=== PATIENT | male | born 1985 | race Two or more races ===

== ENCOUNTER 2019-02-25 07:08 | Emergency (ER) | payer SELFPAY ==
[~2019-02-25] VITALS: Ht 167.6 cm; Wt 81.6 kg
[2019-02-25 07:11] VITALS: BP 130/76
[2019-02-25 07:39] LABS: APPEARANCE,URINE Hazy (CLEAR); BILIRUBIN,URINE Negative (NEGATIVE); BLOOD, URINE Trace-intact Ery/uL (NEGATIVE); COLOR,URINE Yellow (YELLOW); KETONES,URINE Negative (NEGATIVE); LEUKOCYTE ESTERASE ,URINE Negative (NEGATIVE); NITRITE, URINE Negative (NEGATIVE); PROTEIN,URINE 30 mg/dl (NEGATIVE); UGLUCOSE Negative (NEGATIVE); UROBILINOGEN,URINE 0.2 EU/dL (0.2)
[2019-02-25 07:45] LABS: BACTERIA,URINE None seen /HPF (None Seen); SQUAMOUS EPITHELIAL CELL,UR Few /HPF (None Seen); WBC,URINE 0-3 /HPF (0-3)
== END 2019-02-25 08:07 | disposition home or self-care (01) ==
LOC: ER 07:08
DX: N39.0 Urinary tract infection, site not specified (principal); F17.200 Nicotine dependence, unspecified, uncomplicated
CPT/HCPCS: 81000-TC; 87086-TC; 87491; 87591

== ENCOUNTER 2019-03-24 08:01 | Emergency (ER) | payer MEDICAID ==
[~2019-03-24] VITALS: Ht 162.6 cm; Wt 72.6 kg
--- NOTE | 2019-03-24 08:01 | NUR ---
PT pain during urination x 3 weeks, PT IS AAOX4, NOT IN RESPIRTORY DISTRESS, V/S STABLE, KEPT RESTED AND COMFORTABLE, WILL CONTINUE TO MONITOR.
--- NOTE | 2019-03-24 08:15 | NUR ---
URINE SPECIMEN COLLECTED AND SENT TO LAB.
--- NOTE | 2019-03-24 08:17 | NUR ---
AT BEDSIDE FOR EVAL.
[2019-03-24 08:35] LABS: APPEARANCE,URINE Clear (CLEAR); BILIRUBIN,URINE Negative (NEGATIVE); BLOOD, URINE Trace-intact Ery/uL (NEGATIVE); COLOR,URINE Yellow (YELLOW); KETONES,URINE Negative (NEGATIVE); LEUKOCYTE ESTERASE ,URINE Negative (NEGATIVE); NITRITE, URINE Negative (NEGATIVE); PROTEIN,URINE Negative (NEGATIVE); UGLUCOSE Negative (NEGATIVE); UROBILINOGEN,URINE 0.2 EU/dL (0.2)
[2019-03-24 08:37] LABS: BACTERIA,URINE Rare /HPF (None Seen); RBC,URINE 0-2 /HPF (0-2); WBC,URINE 0-2 /HPF (0-3)
[2019-03-24 08:38] LABS: SQUAMOUS EPITHELIAL CELL,UR Rare /HPF (None Seen)
[2019-03-24] MEDS ORDERED: PHENAZOPYRIDINE HCL 200 MG TABLET ONE (08:58)
[2019-03-24] MEDS ORDERED: PHENAZOPYRIDINE HCL 200 MG TABLET PO ONE (09:00)
--- NOTE | 2019-03-24 09:04 | NUR ---
Patient discharged to home in stable condition. Written and verbal after care instructions given. Patient verbalizes understanding of instruction.
[2019-03-24 09:05] VITALS: BP 114/85
== END 2019-03-24 09:06 | disposition home or self-care (01) ==
LOC: ER 08:16
DX: R30.0 Dysuria (principal); F10.10 Alcohol abuse, uncomplicated; F17.200 Nicotine dependence, unspecified, uncomplicated; Y90.9 Presence of alcohol in blood, level not specified
CPT/HCPCS: 81000-TC; 87086-TC

== ENCOUNTER 2019-12-19 10:59 | Emergency (ER) | payer MEDICAID ==
[~2019-12-19] VITALS: Ht 172.7 cm; Wt 74.8 kg
--- NOTE | 2019-12-19 11:20 | NUR ---
PT TAKEN TO RADIOLOGY VIA WHEELCHAIR
[2019-12-19] MEDS ORDERED: ONDANSETRON HCL/PF 4 MG/2 ML VIAL ONE (11:24)
--- NOTE | 2019-12-19 11:29 | NUR ---
PT BACK FROM RADIOLOGY
[2019-12-19] MEDS ORDERED: IV NS 0.9% 1,000 ML BAG IV ONE (11:30)
[2019-12-19] MEDS ORDERED: ONDANSETRON HCL/PF 4 MG/2 ML VIAL IVP ONE (11:30)
--- NOTE | 2019-12-19 11:31 | NUR ---
bibfriend, c/o abd pain, nausea vomiting x 5 days, -diarrhea 5/10 ps. PT IS [place]ORE[place] SPEAKING, AMB, VSS, RR EVEN AND UNLABORED ON RA. AOX4. NO ACUTE DISTRESS NOTED. READY FOR EVAL.
--- NOTE | 2019-12-19 11:40 | NUR ---
IV ACCESS OBTAINED. BLOOD DRAWN AND MEDS GIVEN. IVF INFUSING. PT TRAM WELL
[2019-12-19 11:50] LABS: BASOPHILS % (AUTO) 0.2 % (0.0-2.0); EOSINOPHILS % (AUTO) 0.4 % (0.0-6.0); HEMATOCRIT 50 % (39-51); HEMOGLOBIN 16.8 g/dL (13.5-17.5); LYMPHOCYTES # (AUTO) 1.4 /CMM (0.8-4.8); LYMPHOCYTES % (AUTO) 11.2 % (20.0-44.0); MEAN CORPUSCULAR HGB CONC 33 g/dl (31.0-36.0); MEAN CORPUSCULAR VOLUME 86 fL (80-96); MONOCYTES # (AUTO) 0.5 /CMM (0.1-1.30); MONOCYTES % (AUTO) 3.8 % (2.0-12.0); NEUTROPHILS # (AUTO) 10.4 /CMM (1.8-8.9); NEUTROPHILS % (AUTO) 84.4 % (43.0-81.0); PLATELET COUNT (AUTO) 218 /CMM (150-450); RED BLOOD CELL COUNT(AUTO) 5.85 MIL/uL (4.5-6.0); WHITE BLOOD COUNT (AUTO) 12.3 K/uL (4.3-11.0)
[2019-12-19 11:57] LABS: POTASSIUM 3.6 mmol/L (3.5-5.1)
[2019-12-19 12:03] LABS: ALBUMIN 4.2 g/dL (3.4-5.0); BILIRUBIN,DIRECT 0.1 mg/dL (0.0-0.2); BILIRUBIN,TOTAL 0.3 mg/dL (0.2-1.0); TOTAL PROTEIN, SERUM 7.9 g/dL (6.4-8.2)
--- NOTE | 2019-12-19 12:55 | NUR ---
IV removed. Catheter intact and site benign. Pressure and 4x4 applied to site. No bleeding noted.Patient discharged to home in stable condition. Written and verbal after care instructions given. Patient verbalizes understanding of instruction.
[2019-12-19 12:58] VITALS: BP 130/77
== END 2019-12-19 12:59 | disposition home or self-care (01) ==
LOC: ER 11:03
DX: R10.84 Generalized abdominal pain (principal); R11.2 Nausea with vomiting, unspecified; F17.200 Nicotine dependence, unspecified, uncomplicated
CPT/HCPCS: 36415; 74176; 76705; 80048; 80076; 83690; 85025; 96361; 96374; 99285; J2405; J7030